=== PATIENT | female | born 1950 | race Caucasian/White ===

== ENCOUNTER 2017-06-07 16:56 | Emergency (ER) | payer OTHER ==
[~2017-06-07] VITALS: Ht 167.6 cm; Wt 54.9 kg
--- NOTE | ~2017-06-07 | EKG ---
[place] [address] [employer] [facility] [place] [address] ELECTROCARDIOGRAM REPORT Name: CAROL LEY Room #: DEP [facility]#: [id number] Admission: 06/07/17 Attend Phys: Discharge: 06/07/17 Date of : 52 Report #: [id number] THIS REPORT FOR: //name// [facility] ED Test Date: 2017-06-07 Test Time: 18:23:41 Pat Name: CAROL LEY Department: Room: Gender: F [employer] Operator: TOPHER : 1950 Requested By: Wendy Acharya Order Number: [id number] MD: Carlos Darling Measurements Intervals Gardner Rate: 91 P: 61 OR: 156 QRS: 27 QRSD: 80 T: 238 QT: 345 QTc: 425 Interpretive Statements Sinus tachycardia Multiple ventricular premature complexes Anteroseptal infarct, old Nonspecific repol abnormality, lateral leads Baseline wander in lead(s) II No previous ECG available for comparison Electronically Signed On 06-08-2017 13:02:53 CDT by Carlos Darling [email or web address] <ELECTRONICALLY SIGNED> By: Carlos Darling MD, [facility] 06/08/17 1302 1823 182 Carlos Darling MD, [facility] /EPI
[2017-06-07 17:55] LABS: BASOPHILS 0.4 % (0.0-2.0); EOSINOPHILS 0.1 % (0.0-3.0); HEMOGLOBIN 14.9 gm/dL (12.0-15.0); LYMPHOCYTES 18.1 % (24.0-44.0); MCH 34.3 pg (26.0-34.0); MCHC 34.6 g/dL (28.0-37.0); MCV 99.1 fL (80.0-100.0); PLATELET COUNT 208 thou/uL (150-400); POLYS 74.4 % (36.0-66.0); RBC 4.34 mil/uL (4.20-5.00); RDW 13.5 % (10.5-14.5); WBC 6.7 thou/uL (4.0-11.0)
[2017-06-07 18:05] LABS: CALCIUM 9.4 mg/dL (8.5-10.1); CREATININE 0.6 mg/dL (0.6-1.0); POTASSIUM 3.2 mmol/L (3.5-5.1)
[2017-06-07 18:10] LABS: ALBUMIN 4.3 g/dL (3.4-5.0); TOTAL PROTEIN 7.8 g/dL (6.4-8.2)
[2017-06-07 18:52] LABS: URINE BILIRUBIN NEGATIVE (Negative); URINE BLOOD TRACE (Negative); URINE CLARITY CLEAR; URINE COLOR YELLOW; URINE GLUCOSE-RANDOM* NEGATIVE (Negative); URINE KETONES 3+ (Negative); URINE LEUKOCYTES NEGATIVE (Negative); URINE NITRITE NEGATIVE (Negative); URINE PROTEIN (DIPSTICK) NEGATIVE (Negative); URINE SPECIFIC GRAVITY 1.025 (1.005-1.035); URINE UROBILINOGEN 0.2 E.U./dl (0.2-1.0)
[2017-06-07 18:56] LABS: URINE REDUCING SUBSTANCE NEGATIVE
[2017-06-07] MEDS ORDERED: ONDANSETRON HCL4 M2 PO (19:23)
[2017-06-07 19:35] VITALS: BP 130/75
== END 2017-06-07 19:38 | disposition home or self-care (01) ==
LOC: ER 16:56
PROVIDERS: Nurse Practitioner Family
DX: A08.8 Other specified intestinal infections (principal); F55.2 Abuse of laxatives; R11.10 Vomiting, unspecified; R25.1 Tremor, unspecified